=== PATIENT | male | born 1960 | race Two or more races ===

== ENCOUNTER → 2022-01-27 08:00 | Outpatient (CLI) | payer OTHER ==
[~2022-01-27] VITALS: Ht 172.7 cm; Wt 131.5 kg
[~2022-01-27 08:00] MED LIST: ADULT LOW DOSE81 M1 PO; AVAPRO75 MG PO; CARVEDILOL12.5 MG; GLIPIZIDE XL2.5 MG PO; HYDROCODONE BITA5 GM; LANTUS SOL100 UNIT/1; TRULICITY0.75 MG/0.; ZYLOPRIM100 M1 PO
== END | disposition home or self-care (01) ==
LOC: LAB 08:00 → ADM 10:15 → CIR.AMB 01-31 05:57 → EDSTATUS 01-31 10:15
PROVIDERS: ATTEND Urology
DX: N47.1 Phimosis (principal)